=== PATIENT | female | born 1935 | race African-American/Black ===

== ENCOUNTER 2017-04-29 22:15 | Emergency (ER) | payer MEDICARE, OTHER ==
[2017-04-29] MEDS ORDERED: Ondansetron HCl/PF 4 MG/2 ML Vial ONE (22:30)
[2017-04-30 00:02] LABS: #Eosinphils 0.1 thou/uL (0.0-0.7); #Monocytes 0.3 thou/uL (0.11-0.59); #Neutrophils 4.8 thou/uL (1.40-6.50); %Basophils 0.7 % (0.0-1.0); %Eosinophils 1.7 % (0.0-10.0); %Lymphocytes 15.4 % (21.0-51.0); Hematocrit 35.1 % (36.0-47.0); Mean Platelet Volume 8.4 fL (7.4-10.4); Red Blood Cell (RBC) Count 4.27 mill/uL (4.20-5.40); White Blood Cell (WBC) Count 6.2 thou/uL (4.8-10.8)
[2017-04-30 00:32] LABS: Troponin I 0.018 ng/mL (< 0.028)
[2017-04-30 00:49] LABS: ALT (SGPT) Less than 7 U/L (8-55); AST (SGOT) 13 U/L (5-34); Alkaline Phosphatase 64 U/L (40-150); Anion Gap 14 mmol/L (10-20); BUN (Urea Nitrogen) 38 mg/dL (9.8-20.1); Bilirubin, Total 0.5 mg/dL (0.2-1.2); CK (CPK) 52 U/L (29-168); Calc. Creatinine Clearance 0 mL/min (70-130); Calcium 9.9 mg/dL (7.8-10.44); Carbon Dioxide 27 mmol/L (23-31); Chloride 101 mmol/L (98-107); Estimated GFR-MDRD 21; Globulin 2.9 g/dL (2.4-3.5); Lipase 13 U/L (8-78); Protein, Total 6.7 g/dL (6.0-8.3)
--- NOTE | 2017-04-30 08:53 | RAD ---
RADIOGRAPH CHEST 1 VIEW: HISTORY: 82-year-old female with hypertension, nausea, and emesis. FINDINGS: There is cardiomegaly. The thoracic aorta is tortuous and ectatic. There is no evidence of air spac e density, pulmonary edema, or pneumothorax. The lateral costophrenic angles are sharp. IMPRESSION: 1. No acute pulmonary findings. 2. Cardiomegaly without congestive heart failure. 3. Ectasia of thoracic aorta. tray [] POS: QUINTEN
== END 2017-04-30 02:52 | disposition home or self-care (01) ==
LOC: ERS 22:15
DX: R11.2 Nausea with vomiting, unspecified (principal); E78.5 Hyperlipidemia, unspecified; I69.354 Hemiplegia and hemiparesis following cerebral infarction affecting left non-dominant side; I10 Essential (primary) hypertension; E11.9 Type 2 diabetes mellitus without complications; Z79.4 Long term (current) use of insulin; Z79.899 Other long term (current) drug therapy
CPT/HCPCS: 71010; 80053; 82550; 82553; 83690; 84484; 85025; 93005; 94760; 96374; 96375; J0360; J2405

== ENCOUNTER 2017-05-09 13:12 | Outpatient (CLI) | payer MEDICARE, MEDICAID ==
--- NOTE | 2017-05-09 16:19 | CT ---
NONCONTRAST HEAD CT: Comparison: 04-02-17 History: Follow up bleed. Technique: Noncontrast head CT is performed from skull base to skull vertex. FINDINGS: Previously noted hyperdensity in the right frontal subcortical white matter has resolved. No new are as of parenchymal hemorrhage are appreciated. No extraaxial hematoma. No midline shift. Basilar cist erns are patent. Age appropriate atrophy. Cortical merrill white matter differentiation is preserved. V entricles and sulci are patent and symmetric. Confluent white matter hypodensity due to chronic small vessel ischemic change are noted. Intact calvarium. Right sphenoid sinus disease, unchanged. Adequate aeration of mastoid air cells. IMPRESSION: 1. Interval resolution of previously noted right frontal lobe subcortical hemorrhage. No new areas o f hemorrhage. 2. Age appropriate atrophy. Chronic small vessel ischemic changes are identified. POS: QUINTEN
== END 2017-05-09 13:13 | disposition home or self-care (01) ==
LOC: TBSIIMAG 13:12
PROVIDERS: ATTEND Neurological Surgery
DX: I61.0 Nontraumatic intracerebral hemorrhage in hemisphere, subcortical (principal)
CPT/HCPCS: 70450

== ENCOUNTER 2017-07-04 03:46 | Outpatient (CLI) | payer MEDICARE, MEDICAID | END 2017-07-04 03:47 | disposition home or self-care (01) | LOC: ULT 03:46 | PROVIDERS: ATTEND Internal Medicine Nephrology | DX: N18.9 Chronic kidney disease, unspecified (principal); N28.1 Cyst of kidney, acquired | CPT/HCPCS: 76770 ==

== ENCOUNTER 2018-06-29 12:37 | Emergency (ER) | payer MEDICARE, MEDICAID ==
[2018-06-29 13:14] LABS: #Lymphocytes 0.9 thou/uL (1.20-3.40); #Monocytes 0.2 thou/uL (0.11-0.59); %Basophils 0.5 % (0.0-1.0); %Eosinophils 0.5 % (0.0-10.0); %Lymphocytes 21.6 % (21.0-51.0); %Monocytes 5.8 % (0.0-10.0); %Neutrophils 71.7 % (42.0-75.0); Hemoglobin 10.5 g/dL (12.0-16.0); Mean Corpuscular HGB CONC 32.6 g/dL (32.0-36.0); Mean Corpuscular Hemoglobin 26.6 pg (27.0-31.0); Mean Corpuscular Volume 81.5 fL (78.0-98.0); Platelet Count 191 thou/uL (130-400); RBC Distribution Width 14.4 % (11.5-14.5); Red Blood Cell (RBC) Count 3.94 mill/uL (4.20-5.40); White Blood Cell (WBC) Count 4.2 thou/uL (4.8-10.8)
[2018-06-29 13:38] LABS: ALT (SGPT) Less than 7 U/L (8-55); AST (SGOT) 12 U/L (5-34); Albumin 3.8 g/dL (3.4-4.8); Alkaline Phosphatase 41 U/L (40-150); Anion Gap 12 mmol/L (10-20); BUN (Urea Nitrogen) 47 mg/dL (9.8-20.1); Bilirubin, Total 0.5 mg/dL (0.2-1.2); Calc. Creatinine Clearance 0 mL/min (70-130); Calcium 10.1 mg/dL (7.8-10.44); Carbon Dioxide 26 mmol/L (23-31); Chloride 105 mmol/L (98-107); Estimated GFR-MDRD 19; Globulin 2.7 g/dL (2.4-3.5); Glucose 283 mg/dL (83-110); Potassium 5.5 mmol/L (3.5-5.1); Protein, Total 6.5 g/dL (6.0-8.3); Sodium 137 mmol/L (136-145)
[2018-06-29] MEDS ORDERED: Furosemide 40 MG TAB ONE (15:02)
== END 2018-06-29 15:09 | disposition home or self-care (01) ==
LOC: ERS 12:37
DX: N19 Unspecified kidney failure (principal); E11.9 Type 2 diabetes mellitus without complications; E78.5 Hyperlipidemia, unspecified; I10 Essential (primary) hypertension; E78.1 Pure hyperglyceridemia; Z86.73 Personal history of transient ischemic attack (TIA), and cerebral infarction without residual deficits; Z79.4 Long term (current) use of insulin; Z79.899 Other long term (current) drug therapy
CPT/HCPCS: 36415; 80053; 85025; 99283

== ENCOUNTER 2019-02-22 18:20 | Emergency (ER) | payer MEDICARE, MEDICAID ==
[2019-02-22 18:43] LABS: #Eosinphils 0.1 thou/uL (0.0-0.7); #Lymphocytes 1.4 thou/uL (1.20-3.40); #Monocytes 0.4 thou/uL (0.11-0.59); %Basophils 0.4 % (0.0-1.0); %Eosinophils 1.8 % (0.0-10.0); %Lymphocytes 28.8 % (21.0-51.0); %Monocytes 8.9 % (0.0-10.0); %Neutrophils 60.2 % (42.0-75.0); Hemoglobin 10.3 g/dL (12.0-16.0); Mean Corpuscular HGB CONC 33.3 g/dL (32.0-36.0); Mean Corpuscular Hemoglobin 26.7 pg (27.0-31.0); Mean Corpuscular Volume 80.1 fL (78.0-98.0); Platelet Count 175 thou/uL (130-400); RBC Distribution Width 13.9 % (11.5-14.5); Red Blood Cell (RBC) Count 3.85 mill/uL (4.20-5.40); White Blood Cell (WBC) Count 4.9 thou/uL (4.8-10.8)
--- NOTE | 2019-02-22 19:05 | RAD ---
CHEST ONE VIEW: 02/22/19 INDICATION: History of altered mental status. COMPARISON: Prior exam dated 04/29/17. FINDINGS: There is persistent cardiomegaly with pulmonary vascular congestion and hazy bilateral perihilar opac ities suspicious for edema. No pleural effusion or pneumothorax is evident. IMPRESSION: Findings suspicious for mild CHF. Atypical infectious process cannot be entirely excluded. Recommend correlation with the clinical examination. POS: BLANCHE
[2019-02-22 19:06] LABS: ALT (SGPT) Less than 7 U/L (8-55); AST (SGOT) 12 U/L (5-34); Alkaline Phosphatase 46 U/L (40-150); Anion Gap 13 mmol/L (10-20); BUN (Urea Nitrogen) 60 mg/dL (9.8-20.1); Bilirubin, Total 0.5 mg/dL (0.2-1.2); CK (CPK) 57 U/L (29-168); Calc. Creatinine Clearance 0 mL/min (70-130); Calcium 10.3 mg/dL (7.8-10.44); Carbon Dioxide 29 mmol/L (23-31); Chloride 100 mmol/L (98-107); Estimated GFR-MDRD 15; Globulin 2.7 g/dL (2.4-3.5); Glucose 178 mg/dL (83-110); Lipase 33 U/L (8-78); Potassium 4.2 mmol/L (3.5-5.1); Protein, Total 6.7 g/dL (6.0-8.3); Sodium 138 mmol/L (136-145)
== END 2019-02-22 19:53 | disposition home or self-care (01) ==
LOC: ERS 18:20
DX: E86.0 Dehydration (principal); I12.9 Hypertensive chronic kidney disease with stage 1 through stage 4 chronic kidney disease, or unspecified chronic kidney disease; N18.9 Chronic kidney disease, unspecified; E11.22 Type 2 diabetes mellitus with diabetic chronic kidney disease; Z79.4 Long term (current) use of insulin; E78.2 Mixed hyperlipidemia; Z86.73 Personal history of transient ischemic attack (TIA), and cerebral infarction without residual deficits; Z79.899 Other long term (current) drug therapy
CPT/HCPCS: 71045; 80053; 82550; 83690; 83880; 84484; 85025; 93005; 96360

== ENCOUNTER 2022-03-05 09:48 | Emergency (ER) | payer OTHER | END 2022-03-05 11:02 | disposition home or self-care (01) | LOC: ERS 09:48 | DX: S92.351A Displaced fracture of fifth metatarsal bone, right foot, initial encounter for closed fracture (principal); E11.9 Type 2 diabetes mellitus without complications; E78.5 Hyperlipidemia, unspecified; E78.00 Pure hypercholesterolemia, unspecified; I10 Essential (primary) hypertension; Z86.73 Personal history of transient ischemic attack (TIA), and cerebral infarction without residual deficits; Z79.899 Other long term (current) drug therapy; W18.30XA Fall on same level, unspecified, initial encounter; Z79.4 Long term (current) use of insulin ==

== ENCOUNTER 2023-02-06 21:44 | Emergency (ER) | payer OTHER, MEDICAID ==
[2023-02-07] MEDS ORDERED: Acetaminophen 500 MG TAB ONE (00:06)
[2023-02-07] MEDS ORDERED: Bupivacaine 0.25% 10 ML VIAL ONE (00:11)
[2023-02-07 00:55] LABS: #Monocytes 0.4 thou/uL (0.11-0.59); #Neutrophils 4.2 thou/uL (1.40-6.50); %Basophils 0.3 % (0.0-1.0); %Eosinophils 0.7 % (0.0-10.0); %Lymphocytes 19.4 % (21.0-51.0); %Monocytes 6.1 % (0.0-10.0); %Neutrophils 73.3 % (42.0-75.0); Hemoglobin 9.3 g/dL (12.0-16.0); Mean Corpuscular HGB CONC 32.3 g/dL (32.0-36.0); Mean Corpuscular Hemoglobin 26.3 pg (27.0-31.0); Mean Corpuscular Volume 81.6 fl (78.0-98.0); Mean Platelet Volume 9.4 fL (7.4-10.4); Platelet Count 162 10x3/uL (130-400); RBC Distribution Width 14.5 % (11.5-14.5); Red Blood Cell (RBC) Count 3.53 mill/uL (4.20-5.40); White Blood Cell (WBC) Count 5.8 10x3/uL (4.8-10.8)
[2023-02-07 01:16] LABS: ALT (SGPT) 7 U/L (8-55); AST (SGOT) 13 U/L (5-34); Alkaline Phosphatase 35 U/L (40-110); Anion Gap 18 mmol/L (10-20); BUN (Urea Nitrogen) 62 mg/dL (9.8-20.1); Bilirubin, Total 0.4 mg/dL (0.2-1.2); Calc. Creatinine Clearance 0 mL/min (70-130); Carbon Dioxide 19 mmol/L (23-31); Chloride 104 mmol/L (98-107); Estimated GFR 11; Globulin 2.4 g/dL (2.4-3.5); Glucose 156 mg/dL (83-110); Potassium 4.5 mmol/L (3.5-5.1); Protein, Total 6.4 g/dL (5.8-8.1); Sodium 136 mmol/L (136-145)
[2023-02-07] MEDS ORDERED: Amlodipine 5 MG TAB ONE (05:36)
[2023-02-07] MEDS ORDERED: hydrALAZINE 25 MG TAB ONE (05:38)
== END 2023-02-07 10:12 | disposition home or self-care (01) ==
LOC: ERS 21:44
DX: S82.002A Unspecified fracture of left patella, initial encounter for closed fracture (principal); S01.511A Laceration without foreign body of lip, initial encounter; E11.9 Type 2 diabetes mellitus without complications; E78.2 Mixed hyperlipidemia; I10 Essential (primary) hypertension; W01.198A Fall on same level from slipping, tripping and stumbling with subsequent striking against other object, initial encounter; Z79.4 Long term (current) use of insulin
CPT/HCPCS: 12011; 36415; 70450; 71045; 80053; 85025; 93005; S0020

== ENCOUNTER 2023-05-12 14:34 | Inpatient (IN) | payer OTHER, MEDICAID ==
[2023-05-12 15:12] LABS: #Monocytes 0.3 thou/uL (0.11-0.59); #Neutrophils 4.7 thou/uL (1.40-6.50); %Basophils 0.5 % (0.0-1.0); %Lymphocytes 14.7 % (21.0-51.0); %Monocytes 5.6 % (0.0-10.0); %Neutrophils 78.9 % (42.0-75.0); Hematocrit 32.5 % (36.0-47.0); Hemoglobin 10.4 g/dL (12.0-16.0); Mean Corpuscular Hemoglobin 25.7 pg (27.0-31.0); Mean Corpuscular Volume 80.4 fl (78.0-98.0); Mean Platelet Volume 9.7 fL (7.4-10.4); Platelet Count 208 10x3/uL (130-400); RBC Distribution Width 15.4 % (11.5-14.5); Red Blood Cell (RBC) Count 4.04 mill/uL (4.20-5.40); White Blood Cell (WBC) Count 5.9 10x3/uL (4.8-10.8)
[2023-05-12] MEDS ORDERED: Ondansetron PF 4 MG/2 ML Vial ONE ×2 (15:16→18:06)
[2023-05-12 15:39] LABS: Troponin I 0.083 ng/mL (< 0.028)
[2023-05-12 15:56] LABS: ALT (SGPT) Less than 7 U/L (8-55); AST (SGOT) 17 U/L (5-34); Albumin 4.8 g/dL (3.4-4.8); Alkaline Phosphatase 42 U/L (40-110); Anion Gap 22 mmol/L (10-20); BUN (Urea Nitrogen) 52 mg/dL (9.8-20.1); Bilirubin, Total 0.5 mg/dL (0.2-1.2); Calc. Creatinine Clearance 0 mL/min (70-130); Calcium 11.4 mg/dL (7.8-10.44); Carbon Dioxide 21 mmol/L (23-31); Chloride 103 mmol/L (98-107); Estimated GFR 10; Globulin 2.5 g/dL (2.4-3.5); Glucose 217 mg/dL (83-110); Lipase 18 U/L (8-78); Potassium 5.2 mmol/L (3.5-5.1); Protein, Total 7.3 g/dL (5.8-8.1); Sodium 141 mmol/L (136-145)
[2023-05-12] MEDS ORDERED: Promethazine HCl 25 MG SUPP ONE ×2 (16:36→16:39)
[2023-05-12 18:41] LABS: Troponin I 0.071 ng/mL (< 0.028)
[2023-05-12] MEDS ORDERED: Dextrose 5% in Water 1,000 ML IV PRN ×2 (19:44→20:24)
[2023-05-12] MEDS ORDERED: Dextrose 50% Abboject 50 ML SYRINGE SLOW IVP PRN ×2 (19:44→20:24)
[2023-05-12] MEDS ORDERED: Ondansetron PF 4 MG/2 ML Vial IVP PRN (19:44)
[2023-05-12] MEDS ORDERED: HumaLOG 300 UNITS/3 ML VIAL SC PRN ×2 (19:44)
[2023-05-12] MEDS ORDERED: Acetaminophen 325 MG TAB PO PRN ×2 (19:44→20:20)
[2023-05-12] MEDS ORDERED: Acetaminophen 650 MG Suppository PR PRN (19:44)
[2023-05-12] MEDS ORDERED: Glucagon 1 MG/ML KIT IM PRN ×2 (19:44→20:24)
[2023-05-12] MEDS ORDERED: Ondansetron ODT 4 MG TAB PO PRN (19:44)
[2023-05-12] MEDS ORDERED: Electrolyte Replacement Protocol 1 EACH FS SCH (20:00)
[2023-05-12] MEDS ORDERED: Morphine 4 MG/ML VIAL ONE (20:13)
[2023-05-12] MEDS ORDERED: Labetalol HCl 100 MG/20 ML VIAL ONE (20:24)
[2023-05-12] MEDS ORDERED: cloNIDine 0.1 MG TAB PO SCH (21:00)
[2023-05-12] MEDS ORDERED: hydrALAZINE 25 MG TAB PO SCH (21:00)
[2023-05-12 21:38] LABS: Hemoglobin A1c 7.2 % (4.0-6.0)
[2023-05-12 22:16] VITALS: BMI 21.8
[2023-05-12] MEDS: Heparin 5,000 UNITS/ML VIAL SC SCH (22:18)
[2023-05-12] MEDS: hydrALAZINE 25 MG TAB PO SCH (22:18)
[2023-05-12] MEDS: cloNIDine 0.1 MG TAB PO SCH (22:18)
[2023-05-12] MEDS: HumaLOG 300 UNITS/3 ML VIAL SC PRN (22:19)
[2023-05-12 23:01] LABS: Troponin I 0.088 ng/mL (< 0.028)
[2023-05-13 04:14] LABS: #Monocytes 0.3 thou/uL (0.11-0.59); #Neutrophils 6.1 thou/uL (1.40-6.50); %Basophils 0.3 % (0.0-1.0); %Lymphocytes 5.4 % (21.0-51.0); %Monocytes 3.7 % (0.0-10.0); %Neutrophils 90.5 % (42.0-75.0); Hematocrit 33.3 % (36.0-47.0); Hemoglobin 10.4 g/dL (12.0-16.0); Mean Corpuscular HGB CONC 31.2 g/dL (32.0-36.0); Mean Corpuscular Hemoglobin 25.4 pg (27.0-31.0); Mean Corpuscular Volume 81.4 fl (78.0-98.0); Mean Platelet Volume 10.1 fL (7.4-10.4); Platelet Count 200 10x3/uL (130-400); RBC Distribution Width 15.5 % (11.5-14.5); Red Blood Cell (RBC) Count 4.09 mill/uL (4.20-5.40); White Blood Cell (WBC) Count 6.7 10x3/uL (4.8-10.8)
[2023-05-13 04:42] LABS: ALT (SGPT) Less than 7 U/L (8-55); AST (SGOT) 14 U/L (5-34); Albumin 4.8 g/dL (3.4-4.8); Alkaline Phosphatase 42 U/L (40-110); Anion Gap 20 mmol/L (10-20); BUN (Urea Nitrogen) 50 mg/dL (9.8-20.1); Bilirubin, Total 0.5 mg/dL (0.2-1.2); Calc. Creatinine Clearance 8 mL/min (70-130); Calcium 11.5 mg/dL (7.8-10.44); Carbon Dioxide 26 mmol/L (23-31); Chloride 103 mmol/L (98-107); Estimated GFR 10; Globulin 2.5 g/dL (2.4-3.5); Glucose 257 mg/dL (83-110); Potassium 4.6 mmol/L (3.5-5.1); Protein, Total 7.3 g/dL (5.8-8.1); Sodium 144 mmol/L (136-145)
[2023-05-13 05:42] LABS: Bacteria/HPF 3+ HPF (None Seen); Bilirubin Negative (Negative); Blood, Urine Negative (Negative); Clarity Clear (Clear); Glucose, Urine (Dipstick) 500 mg/dL (Negative); Ketone, Urine 10 mg/dL (Negative); Leukocyte Negative Leu/uL (Negative); Nitrite Negative (Negative); Protein, Urine (Dipstick) 200 mg/dL (Neg-Trace); RBC/HPF 0-3 HPF (0-3); Squamous Epithelial None Seen HPF (0-3); Urobilinogen Normal mg/dL (Less than 2); WBC/HPF 0-3 HPF (0-3)
[2023-05-13] MEDS ORDERED: Furosemide 40 MG/4 ML VIAL SLOW IVP SCH (06:00)
[2023-05-13] MEDS: HumaLOG 300 UNITS/3 ML VIAL SC PRN (06:11)
[2023-05-13] MEDS ORDERED: Famotidine 20 MG TAB PO SCH (09:00)
[2023-05-13] MEDS ORDERED: Insulin Glargine 30 UNITS/0.3 ML VIAL SC SCH (09:15)
[2023-05-13] MEDS ORDERED: Amlodipine 10 MG TAB PO SCH (09:15)
[2023-05-13] MEDS ORDERED: Lactated Ringer's 1,000 ML IV SCH (09:15)
[2023-05-13] MEDS: Heparin 5,000 UNITS/ML VIAL SC SCH ×2 (09:45→21:12)
[2023-05-13] MEDS: hydrALAZINE 25 MG TAB PO SCH ×4 (09:46→21:09)
[2023-05-13] MEDS: cloNIDine 0.1 MG TAB PO SCH ×2 (09:47→21:08)
[2023-05-13] MEDS ORDERED: Sodium Chloride 0.9% 1,000 ML IV SCH ×2 (12:45→13:26)
[2023-05-13] MEDS ORDERED: EPOETIN ALFA-EPBX (ESRD) 10,000 UNITS/ML VIAL SC SCH (13:00)
[2023-05-13] MEDS: Sodium Chloride 0.45% 1,000 ML IV SCH (14:50)
[2023-05-13 16:55] LABS: Anion Gap 13 mmol/L (10-20); BUN (Urea Nitrogen) 53 mg/dL (9.8-20.1); Calc. Creatinine Clearance 9 mL/min (70-130); Calcium 10.6 mg/dL (7.8-10.44); Carbon Dioxide 29 mmol/L (23-31); Chloride 106 mmol/L (98-107); Estimated GFR 11; Glucose 102 mg/dL (83-110); Magnesium 2.1 mg/dL (1.6-2.6); Potassium 4.8 mmol/L (3.5-5.1); Sodium 143 mmol/L (136-145)
[2023-05-13] MEDS: HumaLOG 300 UNITS/3 ML VIAL SC SCH (19:01)
[2023-05-13] MEDS: PARoxetine 20 MG TAB PO SCH (21:12)
[2023-05-14] MEDS: Sodium Chloride 0.45% 1,000 ML IV SCH ×2 (00:23→09:03)
[2023-05-14 04:11] LABS: #Monocytes 0.5 thou/uL (0.11-0.59); #Neutrophils 4.7 thou/uL (1.40-6.50); %Basophils 0.3 % (0.0-1.0); %Lymphocytes 17.4 % (21.0-51.0); %Monocytes 8.4 % (0.0-10.0); %Neutrophils 73.4 % (42.0-75.0); Hematocrit 28.8 % (36.0-47.0); Hemoglobin 8.7 g/dL (12.0-16.0); Mean Corpuscular HGB CONC 30.2 g/dL (32.0-36.0); Mean Corpuscular Hemoglobin 25.4 pg (27.0-31.0); Mean Corpuscular Volume 84.2 fl (78.0-98.0); Mean Platelet Volume 9.9 fL (7.4-10.4); Platelet Count 164 10x3/uL (130-400); RBC Distribution Width 15.5 % (11.5-14.5); Red Blood Cell (RBC) Count 3.42 mill/uL (4.20-5.40); White Blood Cell (WBC) Count 6.3 10x3/uL (4.8-10.8)
[2023-05-14 04:39] LABS: Albumin 3.9 g/dL (3.4-4.8); Anion Gap 14 mmol/L (10-20); BUN (Urea Nitrogen) 59 mg/dL (9.8-20.1); BUN/Creatinine Ratio 15.05; Calc. Creatinine Clearance 8 mL/min (70-130); Calcium 9.9 mg/dL (7.8-10.44); Carbon Dioxide 26 mmol/L (23-31); Chloride 105 mmol/L (98-107); Estimated GFR 11; Glucose 87 mg/dL (83-110); Phosphorus 3.7 mg/dL (2.3-4.7); Potassium 4.7 mmol/L (3.5-5.1); Sodium 140 mmol/L (136-145)
[2023-05-14] MEDS ORDERED: Calcitriol 0.25 MCG CAP PO SCH (09:00)
[2023-05-14] MEDS: Amlodipine 10 MG TAB PO SCH (09:01)
[2023-05-14] MEDS: cloNIDine 0.1 MG TAB PO SCH ×2 (09:01→19:52)
[2023-05-14] MEDS: hydrALAZINE 25 MG TAB PO SCH ×3 (09:02→19:51)
[2023-05-14] MEDS: Heparin 5,000 UNITS/ML VIAL SC SCH ×2 (09:02→21:06)
[2023-05-14] MEDS: HumaLOG 300 UNITS/3 ML VIAL SC SCH ×3 (09:04→16:52)
[2023-05-14] MEDS: Insulin Glargine 30 UNITS/0.3 ML VIAL SC SCH (09:08)
[2023-05-14] MEDS ORDERED: Sodium Chloride 0.45% 1,000 ML IV SCH (09:16)
[2023-05-14] MEDS ORDERED: Prochlorperazine Maleate 5 MG TAB PO PRN (09:18)
[2023-05-14] MEDS ORDERED: Dextrose 50% Abboject 50 ML SYRINGE ONE (12:49)
[2023-05-14] MEDS ORDERED: Polyethylene Glycol 3350 17 GM Packet PO SCH (13:00)
[2023-05-14] MEDS ORDERED: Glucagon 1 MG/ML KIT ONE (15:59)
[2023-05-14 16:34] LABS: Glucose 277 mg/dL (83-110)
[2023-05-14] MEDS: Carvedilol 6.25 MG TAB PO SCH (16:53)
[2023-05-14 17:13] LABS: Anion Gap 14 mmol/L (10-20); BUN (Urea Nitrogen) 58 mg/dL (9.8-20.1); Calc. Creatinine Clearance 8 mL/min (70-130); Calcium 9.3 mg/dL (7.8-10.44); Carbon Dioxide 23 mmol/L (23-31); Chloride 104 mmol/L (98-107); Estimated GFR 10; Potassium 3.7 mmol/L (3.5-5.1); Sodium 137 mmol/L (136-145)
[2023-05-14] MEDS ORDERED: Dextrose 5% in Water 1,000 ML IV SCH (17:45)
[2023-05-14] MEDS: PARoxetine 20 MG TAB PO SCH (21:07)
[2023-05-14] MEDS: HumaLOG 300 UNITS/3 ML VIAL SC PRN (21:27)
[2023-05-15 04:32] LABS: #Monocytes 0.6 thou/uL (0.11-0.59); #Neutrophils 5.3 thou/uL (1.40-6.50); %Basophils 0.3 % (0.0-1.0); %Eosinophils 0.4 % (0.0-10.0); %Lymphocytes 16.9 % (21.0-51.0); %Monocytes 8.9 % (0.0-10.0); %Neutrophils 73.1 % (42.0-75.0); Hematocrit 28.1 % (36.0-47.0); Hemoglobin 8.7 g/dL (12.0-16.0); Mean Corpuscular Hemoglobin 25.7 pg (27.0-31.0); Mean Corpuscular Volume 82.9 fl (78.0-98.0); Mean Platelet Volume 9.9 fL (7.4-10.4); Platelet Count 154 10x3/uL (130-400); RBC Distribution Width 15.4 % (11.5-14.5); Red Blood Cell (RBC) Count 3.39 mill/uL (4.20-5.40); White Blood Cell (WBC) Count 7.2 10x3/uL (4.8-10.8)
[2023-05-15 04:58] LABS: Albumin 3.7 g/dL (3.4-4.8); Anion Gap 15 mmol/L (10-20); BUN (Urea Nitrogen) 62 mg/dL (9.8-20.1); Calc. Creatinine Clearance 8 mL/min (70-130); Calcium 9.1 mg/dL (7.8-10.44); Carbon Dioxide 22 mmol/L (23-31); Chloride 105 mmol/L (98-107); Estimated GFR 10; Glucose 64 mg/dL (83-110); Phosphorus 3.4 mg/dL (2.3-4.7); Potassium 4.5 mmol/L (3.5-5.1); Sodium 137 mmol/L (136-145)
[2023-05-15] MEDS ORDERED: Carvedilol 25 MG TAB PO SCH (08:57)
[2023-05-15] MEDS ORDERED: Ergocalciferol 1.25 MG(50,000 UNITS) CAP PO SCH (09:00)
[2023-05-15] MEDS ORDERED: FLU VACC QS2023(65UP)/MF59C/PF 60 MCG/0.5 ML SYRINGE IM ONE (09:00)
[2023-05-15] MEDS: Amlodipine 10 MG TAB PO SCH (09:53)
[2023-05-15] MEDS: cloNIDine 0.1 MG TAB PO SCH ×2 (09:53→21:49)
[2023-05-15] MEDS: hydrALAZINE 25 MG TAB PO SCH ×3 (09:54→21:50)
[2023-05-15] MEDS: Polyethylene Glycol 3350 17 GM Packet PO SCH (09:54)
[2023-05-15] MEDS: Heparin 5,000 UNITS/ML VIAL SC SCH ×2 (09:54→21:50)
[2023-05-15] MEDS: Insulin Glargine 30 UNITS/0.3 ML VIAL SC SCH (09:55)
[2023-05-15] MEDS: Carvedilol 6.25 MG TAB PO SCH (10:03)
[2023-05-15] MEDS: Carvedilol 25 MG TAB PO SCH (16:14)
[2023-05-15] MEDS: HumaLOG 300 UNITS/3 ML VIAL SC PRN (18:57)
[2023-05-15] MEDS: PARoxetine 20 MG TAB PO SCH (21:50)
[2023-05-16 04:33] LABS: #Monocytes 0.5 thou/uL (0.11-0.59); #Neutrophils 4.6 thou/uL (1.40-6.50); %Basophils 0.3 % (0.0-1.0); %Eosinophils 0.5 % (0.0-10.0); %Lymphocytes 19.2 % (21.0-51.0); %Monocytes 7.2 % (0.0-10.0); Hematocrit 24.2 % (36.0-47.0); Hemoglobin 7.7 g/dL (12.0-16.0); Mean Corpuscular HGB CONC 31.8 g/dL (32.0-36.0); Mean Corpuscular Volume 81.8 fl (78.0-98.0); Mean Platelet Volume 10.6 fL (7.4-10.4); Platelet Count 150 10x3/uL (130-400); RBC Distribution Width 15.4 % (11.5-14.5); Red Blood Cell (RBC) Count 2.96 mill/uL (4.20-5.40); White Blood Cell (WBC) Count 6.4 10x3/uL (4.8-10.8)
[2023-05-16 05:08] LABS: Albumin 3.5 g/dL (3.4-4.8); Anion Gap 14 mmol/L (10-20); BUN (Urea Nitrogen) 65 mg/dL (9.8-20.1); BUN/Creatinine Ratio 14.54; Calc. Creatinine Clearance 7 mL/min (70-130); Calcium 9.2 mg/dL (7.8-10.44); Carbon Dioxide 25 mmol/L (23-31); Chloride 104 mmol/L (98-107); Estimated GFR 9; Glucose 162 mg/dL (83-110); Phosphorus 2.5 mg/dL (2.3-4.7); Potassium 5.2 mmol/L (3.5-5.1); Sodium 138 mmol/L (136-145)
[2023-05-16 06:44] LABS: Troponin I 0.044 ng/mL (< 0.028)
[2023-05-16] MEDS ORDERED: LOKELMA 10 GM PACKET PO SCH (08:45)
[2023-05-16] MEDS: cloNIDine 0.1 MG TAB PO SCH ×2 (08:59→21:06)
[2023-05-16] MEDS: Amlodipine 10 MG TAB PO SCH ×2 (08:59→09:03)
[2023-05-16] MEDS: Heparin 5,000 UNITS/ML VIAL SC SCH ×2 (09:02→21:05)
[2023-05-16] MEDS ORDERED: Dextrose 50% Abboject 50 ML SYRINGE SLOW IVP SCH (09:08)
[2023-05-16] MEDS ORDERED: Insulin Regular 300 UNITS/3 ML VIAL IVP SCH ×2 (09:15→10:15)
[2023-05-16 09:36] LABS: Iron 29 ug/dL (50-170); Iron Binding Capacity, Total 168 mcg/dL (265-497)
[2023-05-16] MEDS ORDERED: Carvedilol 25 MG TAB PO SCH ×2 (10:00→17:00)
[2023-05-16] MEDS ORDERED: hydrALAZINE 25 MG TAB PO SCH (10:00)
[2023-05-16] MEDS ORDERED: VANCOMYCIN (BATCH) 1.25 GM 1.25 GM in Premix Bag 1 BAG IVPB SCH (10:00)
[2023-05-16] MEDS ORDERED: Vancomycin Dose by Levels Sliding Scale (Wt <71) FS SCH (10:00)
[2023-05-16] MEDS: Polyethylene Glycol 3350 17 GM Packet PO SCH (10:36)
[2023-05-16] MEDS: Insulin Glargine 30 UNITS/0.3 ML VIAL SC SCH (10:44)
[2023-05-16] MEDS: Carvedilol 25 MG TAB PO SCH (10:45)
[2023-05-16 15:02] LABS: Magnesium 1.9 mg/dL (1.6-2.6)
[2023-05-16] MEDS: hydrALAZINE 25 MG TAB PO SCH ×2 (15:49→21:06)
[2023-05-16] MEDS: Atorvastatin Calcium 20 MG TAB PO SCH (21:06)
[2023-05-16] MEDS: PARoxetine 20 MG TAB PO SCH (21:07)
[2023-05-17 03:57] LABS: #Eosinphils 0.1 thou/uL (0.0-0.7); #Monocytes 0.5 thou/uL (0.11-0.59); %Basophils 0.4 % (0.0-1.0); %Eosinophils 1.4 % (0.0-10.0); %Lymphocytes 18.6 % (21.0-51.0); %Monocytes 8.2 % (0.0-10.0); %Neutrophils 70.5 % (42.0-75.0); Hemoglobin 7.5 g/dL (12.0-16.0); Mean Corpuscular HGB CONC 31.3 g/dL (32.0-36.0); Mean Corpuscular Hemoglobin 25.4 pg (27.0-31.0); Mean Corpuscular Volume 81.4 fl (78.0-98.0); Mean Platelet Volume 10.5 fL (7.4-10.4); Platelet Count 160 10x3/uL (130-400); RBC Distribution Width 15.5 % (11.5-14.5); Red Blood Cell (RBC) Count 2.95 mill/uL (4.20-5.40); White Blood Cell (WBC) Count 5.7 10x3/uL (4.8-10.8)
[2023-05-17 07:14] LABS: Anion Gap 11 mmol/L (10-20); BUN (Urea Nitrogen) 65 mg/dL (9.8-20.1); Calc. Creatinine Clearance 8 mL/min (70-130); Calcium 9.1 mg/dL (7.8-10.44); Carbon Dioxide 26 mmol/L (23-31); Chloride 103 mmol/L (98-107); Estimated GFR 9; Glucose 140 mg/dL (83-110); Potassium 4.7 mmol/L (3.5-5.1); Sodium 135 mmol/L (136-145)
[2023-05-17 07:25] LABS: HBSAB Concentration Less than 8.00 mIU/mL; HBSAg Index 0.16 S/CO (0-0.99); Hep B Core Total Ab Non-Reactive (NonReactive); Hep B Core Total Index 0.06 S/CO (0-0.79); Hep B Surf AB Non-Reactive (NonReactive); Hep B Surf Ag Non-Reactive S/CO (NonReactive); Hep C IgG Ab Non-Reactive S/CO (NonReactive); Hep C Index 0.06 S/CO (0-0.79)
[2023-05-17 11:27] LABS: Vancomycin, Random 12.1 ug/mL (See Comment)
[2023-05-17] MEDS: hydrALAZINE 25 MG TAB PO SCH ×3 (12:03→21:16)
[2023-05-17] MEDS: cloNIDine 0.1 MG TAB PO SCH ×2 (12:03→21:15)
[2023-05-17] MEDS: Heparin 5,000 UNITS/ML VIAL SC SCH ×2 (12:10→21:15)
[2023-05-17] MEDS: Polyethylene Glycol 3350 17 GM Packet PO SCH (12:12)
[2023-05-17] MEDS ORDERED: Amlodipine 10 MG TAB PO SCH (12:15)
[2023-05-17] MEDS ORDERED: Vancomycin HCl 750 MG in Sodium Chloride 0.9% 250 ML 250 ML IVPB SCH (12:45)
[2023-05-17] MEDS ORDERED: Sodium Chloride 0.9% 0 ML ONE (13:36)
[2023-05-17] MEDS: HumaLOG 300 UNITS/3 ML VIAL SC PRN (17:16)
[2023-05-17] MEDS: Atorvastatin Calcium 20 MG TAB PO SCH (21:14)
[2023-05-17] MEDS: PARoxetine 20 MG TAB PO SCH (21:16)
[2023-05-18 04:04] LABS: #Eosinphils 0.1 thou/uL (0.0-0.7); #Monocytes 0.6 thou/uL (0.11-0.59); #Neutrophils 3.6 thou/uL (1.40-6.50); %Basophils 0.2 % (0.0-1.0); %Lymphocytes 19.7 % (21.0-51.0); %Monocytes 10.1 % (0.0-10.0); %Neutrophils 66.9 % (42.0-75.0); Hematocrit 24.1 % (36.0-47.0); Hemoglobin 7.6 g/dL (12.0-16.0); Mean Corpuscular HGB CONC 31.5 g/dL (32.0-36.0); Mean Corpuscular Hemoglobin 25.9 pg (27.0-31.0); Mean Corpuscular Volume 82.3 fl (78.0-98.0); Mean Platelet Volume 10.7 fL (7.4-10.4); Platelet Count 188 10x3/uL (130-400); RBC Distribution Width 15.6 % (11.5-14.5); Red Blood Cell (RBC) Count 2.93 mill/uL (4.20-5.40); White Blood Cell (WBC) Count 5.4 10x3/uL (4.8-10.8)
[2023-05-18 05:11] LABS: Calcium 9.4 mg/dL (7.8-10.44); Chloride 104 mmol/L (98-107); Glucose 150 mg/dL (83-110); Potassium 4.8 mmol/L (3.5-5.1); Sodium 137 mmol/L (136-145)
[2023-05-18 05:12] LABS: Anion Gap 14 mmol/L (10-20); BUN (Urea Nitrogen) 65 mg/dL (9.8-20.1); Calc. Creatinine Clearance 8 mL/min (70-130); Carbon Dioxide 24 mmol/L (23-31); Estimated GFR 10
[2023-05-18] MEDS ORDERED: Amlodipine 10 MG TAB PO SCH (09:00)
[2023-05-18] MEDS: Polyethylene Glycol 3350 17 GM Packet PO SCH (09:36)
[2023-05-18] MEDS: cloNIDine 0.1 MG TAB PO SCH ×2 (09:36→21:26)
[2023-05-18] MEDS: Heparin 5,000 UNITS/ML VIAL SC SCH ×2 (09:36→21:28)
[2023-05-18] MEDS: hydrALAZINE 25 MG TAB PO SCH ×3 (09:37→21:27)
[2023-05-18] MEDS: HumaLOG 300 UNITS/3 ML VIAL SC PRN (11:29)
[2023-05-18] MEDS: PARoxetine 20 MG TAB PO SCH (21:27)
[2023-05-18] MEDS: Atorvastatin Calcium 20 MG TAB PO SCH (21:27)
[2023-05-19 04:30] LABS: #Eosinphils 0.2 thou/uL (0.0-0.7); #Monocytes 0.5 thou/uL (0.11-0.59); #Neutrophils 2.8 thou/uL (1.40-6.50); %Basophils 0.6 % (0.0-1.0); %Eosinophils 3.2 % (0.0-10.0); %Lymphocytes 26.3 % (21.0-51.0); %Monocytes 10.3 % (0.0-10.0); %Neutrophils 57.7 % (42.0-75.0); Hematocrit 26.3 % (36.0-47.0); Hemoglobin 8.2 g/dL (12.0-16.0); Mean Corpuscular HGB CONC 31.2 g/dL (32.0-36.0); Mean Corpuscular Hemoglobin 25.7 pg (27.0-31.0); Mean Corpuscular Volume 82.4 fl (78.0-98.0); Mean Platelet Volume 10.2 fL (7.4-10.4); Platelet Count 211 10x3/uL (130-400); RBC Distribution Width 15.6 % (11.5-14.5); Red Blood Cell (RBC) Count 3.19 mill/uL (4.20-5.40); White Blood Cell (WBC) Count 4.8 10x3/uL (4.8-10.8)
[2023-05-19 05:06] LABS: Anion Gap 12 mmol/L (10-20); BUN (Urea Nitrogen) 62 mg/dL (9.8-20.1); Calc. Creatinine Clearance 8 mL/min (70-130); Calcium 9.5 mg/dL (7.8-10.44); Carbon Dioxide 25 mmol/L (23-31); Chloride 105 mmol/L (98-107); Estimated GFR 9; Glucose 165 mg/dL (83-110); Magnesium 2.3 mg/dL (1.6-2.6); Potassium 4.7 mmol/L (3.5-5.1); Sodium 137 mmol/L (136-145)
[2023-05-19] MEDS: hydrALAZINE 25 MG TAB PO SCH ×2 (09:31→16:13)
[2023-05-19] MEDS: cloNIDine 0.1 MG TAB PO SCH (09:31)
[2023-05-19] MEDS: Polyethylene Glycol 3350 17 GM Packet PO SCH (09:32)
[2023-05-19] MEDS: Heparin 5,000 UNITS/ML VIAL SC SCH (09:36)
[2023-05-19] MEDS: HumaLOG 300 UNITS/3 ML VIAL SC PRN (11:05)
[2023-05-19 16:46] VITALS: BP 172/74; TEMP 99.3
== END 2023-05-19 19:55 | disposition home or self-care (01) | DRG 682 ==
LOC: ERS 14:34 → 2NO 19:50 → OBSVTOIN 05-14 12:49
PROVIDERS: ADMIT Internal Medicine; ATTEND Internal Medicine
DX: N17.9 Acute kidney failure, unspecified (principal); I21.A1 Myocardial infarction type 2; I16.1 Hypertensive emergency; E87.20 Acidosis, unspecified; I69.354 Hemiplegia and hemiparesis following cerebral infarction affecting left non-dominant side; I47.20 Ventricular tachycardia, unspecified; A08.4 Viral intestinal infection, unspecified; N18.5 Chronic kidney disease, stage 5; E78.5 Hyperlipidemia, unspecified; R33.9 Retention of urine, unspecified; D63.1 Anemia in chronic kidney disease; E83.52 Hypercalcemia; E11.65 Type 2 diabetes mellitus with hyperglycemia; E83.39 Other disorders of phosphorus metabolism; I25.10 Atherosclerotic heart disease of native coronary artery without angina pectoris; E11.649 Type 2 diabetes mellitus with hypoglycemia without coma; S82.002D Unspecified fracture of left patella, subsequent encounter for closed fracture with routine healing; Z79.899 Other long term (current) drug therapy; Z79.4 Long term (current) use of insulin
CPT/HCPCS: 36415; 36416; 71045; 74176; 80048; 80053; 80069; 80202; 81001; 82010; 82306; 82728; 83036; 83540; 83550; 83605; 83690; 83735; 83970; 84443; 84484; 85025; 86704; 87040; 87077; 87149; 93005; 93010; 93306; 96372; 96374; 96375; 96376; G0378; J1644; J1815; J2270; J2405; J3370; J7050; J7070; J7120; J7999; Q5105

== ENCOUNTER 2023-06-07 12:27 | Inpatient (IN) | payer OTHER ==
[2023-06-07 13:10] LABS: #Monocytes 0.3 thou/uL (0.11-0.59); #Neutrophils 1.5 thou/uL (1.40-6.50); %Basophils 1.2 % (0.0-1.0); %Eosinophils 1.5 % (0.0-10.0); %Lymphocytes 29.2 % (21.0-51.0); %Monocytes 10.8 % (0.0-10.0); %Neutrophils 56.9 % (42.0-75.0); Hematocrit 29.1 % (36.0-47.0); Hemoglobin 9.2 g/dL (12.0-16.0); Mean Corpuscular HGB CONC 31.6 g/dL (32.0-36.0); Mean Corpuscular Hemoglobin 26.7 pg (27.0-31.0); Mean Corpuscular Volume 84.3 fl (78.0-98.0); Mean Platelet Volume 9.8 fL (7.4-10.4); Platelet Count 185 10x3/uL (130-400); RBC Distribution Width 16.3 % (11.5-14.5); Red Blood Cell (RBC) Count 3.45 mill/uL (4.20-5.40); White Blood Cell (WBC) Count 2.6 10x3/uL (4.8-10.8)
[2023-06-07 13:41] LABS: ALT (SGPT) Less than 7 U/L (8-55); AST (SGOT) 12 U/L (5-34); Albumin 3.9 g/dL (3.4-4.8); Alkaline Phosphatase 47 U/L (40-110); Anion Gap 15 mmol/L (10-20); BUN (Urea Nitrogen) 60 mg/dL (9.8-20.1); Bilirubin, Total 0.5 mg/dL (0.2-1.2); Calc. Creatinine Clearance 0 mL/min (70-130); Calcium 9.8 mg/dL (7.8-10.44); Carbon Dioxide 25 mmol/L (23-31); Chloride 104 mmol/L (98-107); Estimated GFR 10; Globulin 2.2 g/dL (2.4-3.5); Glucose 209 mg/dL (83-110); Protein, Total 6.1 g/dL (5.8-8.1); Sodium 138 mmol/L (136-145)
[2023-06-07 13:50] LABS: Potassium 6.3 mmol/L (3.5-5.1)
[2023-06-07 15:40] LABS: Actual Bicarbonate (HCO3a) 25.6 mEq/L (22-28); Analyzer IN Cardio ER; Base Excess (BEa) -0.1 mEq/L (-2.0 to +3.0); CO2 Tension 46.1 mmHg (35.0-45.0); Calcium, Ionized (arterial) 1.25 mmol/L (1.12-1.30); Carboxyhemoglobin (COHb) 0.4 gm% (0.0-3.0); Hematocrit-ABG 29 % (36.0-47.0); Potassium - ABG Lab 5.49 mmol/L (3.70-5.30); pH, Arterial 7.362 (7.35-7.45)
[2023-06-07 15:50] LABS: O2 Tension (PaO2), arterial 31.4 mmHg (> 60.0)
[2023-06-07 15:51] LABS: ALV-art Gradient 60.705 mmHg (0-20); Puncture Site RRA
[2023-06-07] MEDS ORDERED: Calcium Chloride 1 GM/10 ML Abboject SYRINGE ONE ×2 (16:01)
[2023-06-07] MEDS ORDERED: Insulin Regular 300 UNITS/3 ML VIAL ONE (16:01)
[2023-06-07] MEDS ORDERED: Dextrose 10% in Water 250 ML ONE (16:01)
[2023-06-07] MEDS ORDERED: Albuterol 2.5 MG/0.5 ML NEB ONE (16:59)
[2023-06-07 17:22] LABS: Troponin I 0.028 ng/mL (< 0.028)
[2023-06-07] MEDS ORDERED: Furosemide 40 MG/4 ML VIAL ONE (17:22)
[2023-06-07] MEDS ORDERED: LOKELMA 10 GM PACKET PO SCH (17:30)
[2023-06-07 17:38] LABS: Magnesium 1.9 mg/dL (1.6-2.6)
[2023-06-07 19:18] LABS: ALT (SGPT) Less than 7 U/L (8-55); AST (SGOT) 13 U/L (5-34); Alkaline Phosphatase 46 U/L (40-110); Anion Gap 15 mmol/L (10-20); BUN (Urea Nitrogen) 59 mg/dL (9.8-20.1); Calc. Creatinine Clearance 0 mL/min (70-130); Carbon Dioxide 22 mmol/L (23-31); Chloride 105 mmol/L (98-107); Estimated GFR 10; Globulin 2.1 g/dL (2.4-3.5); Glucose 115 mg/dL (83-110); Protein, Total 6.1 g/dL (5.8-8.1); Sodium 137 mmol/L (136-145)
[2023-06-07 19:26] LABS: Bilirubin, Total 0.4 mg/dL (0.2-1.2)
[2023-06-07 20:58] LABS: Troponin I 0.034 ng/mL (< 0.028)
[2023-06-07 22:24] VITALS: BMI 19.8
[2023-06-07] MEDS: Heparin 5,000 UNITS/ML VIAL SC SCH (22:26)
[2023-06-07] MEDS ORDERED: cloNIDine 0.1 MG TAB PO SCH (23:30)
[2023-06-07] MEDS ORDERED: hydrALAZINE 25 MG TAB PO SCH (23:30)
[2023-06-07] MEDS ORDERED: Dextrose 5% in Water 1,000 ML IV PRN (23:42)
[2023-06-07] MEDS ORDERED: Dextrose 50% Abboject 50 ML SYRINGE SLOW IVP PRN (23:42)
[2023-06-07] MEDS ORDERED: Glucagon 1 MG/ML KIT IM PRN (23:42)
[2023-06-08 00:04] LABS: Troponin I 0.034 ng/mL (< 0.028)
[2023-06-08 06:25] LABS: #Eosinphils 0.1 thou/uL (0.0-0.7); #Monocytes 0.4 thou/uL (0.11-0.59); #Neutrophils 2.3 thou/uL (1.40-6.50); %Basophils 0.9 % (0.0-1.0); %Eosinophils 3.1 % (0.0-10.0); %Lymphocytes 20.2 % (21.0-51.0); %Monocytes 11.4 % (0.0-10.0); %Neutrophils 64.1 % (42.0-75.0); Hemoglobin 9.3 g/dL (12.0-16.0); Mean Corpuscular Hemoglobin 25.5 pg (27.0-31.0); Mean Corpuscular Volume 82.2 fl (78.0-98.0); Mean Platelet Volume 9.9 fL (7.4-10.4); Platelet Count 186 10x3/uL (130-400); Red Blood Cell (RBC) Count 3.65 mill/uL (4.20-5.40); White Blood Cell (WBC) Count 3.5 10x3/uL (4.8-10.8)
[2023-06-08 06:48] LABS: ALT (SGPT) Less than 7 U/L (8-55); AST (SGOT) 13 U/L (5-34); Alkaline Phosphatase 47 U/L (40-110); Anion Gap 13 mmol/L (10-20); BUN (Urea Nitrogen) 60 mg/dL (9.8-20.1); Bilirubin, Total 0.6 mg/dL (0.2-1.2); Calc. Creatinine Clearance 9 mL/min (70-130); Calcium 10.7 mg/dL (7.8-10.44); Carbon Dioxide 27 mmol/L (23-31); Chloride 102 mmol/L (98-107); Estimated GFR 10; Globulin 2.1 g/dL (2.4-3.5); Glucose 119 mg/dL (83-110); Potassium 5.2 mmol/L (3.5-5.1); Protein, Total 6.1 g/dL (5.8-8.1); Sodium 137 mmol/L (136-145)
[2023-06-08] MEDS: Heparin 5,000 UNITS/ML VIAL SC SCH ×3 (07:24→20:21)
[2023-06-08 07:29] LABS: HBSAB Concentration Less than 8.00 mIU/mL; HBSAg Index 0.17 S/CO (0-0.99); Hep B Core Total Ab Non-Reactive (NonReactive); Hep B Core Total Index 0.08 S/CO (0-0.79); Hep B Surf AB Non-Reactive (NonReactive); Hep B Surf Ag Non-Reactive S/CO (NonReactive); Hep C IgG Ab Non-Reactive S/CO (NonReactive); Hep C Index 0.06 S/CO (0-0.79)
[2023-06-08] MEDS: hydrALAZINE 25 MG TAB PO SCH ×3 (08:29→20:20)
[2023-06-08] MEDS: cloNIDine 0.1 MG TAB PO SCH ×3 (08:29→20:21)
[2023-06-08] MEDS ORDERED: Epoetin (ESRD) 10,000 UNITS/ML VIAL IVP SCH (12:00)
[2023-06-08] MEDS: Tuberculin PPD 0.1 ML VIAL I-DERMAL SCH (12:27)
[2023-06-08] MEDS: HumaLOG 300 UNITS/3 ML VIAL SC PRN (17:32)
[2023-06-08] MEDS: Acetaminophen 325 MG TAB PO PRN (20:23)
[2023-06-09] MEDS ORDERED: Sevoflurane 250 ML INH ANEST BOTTLE ONE (03:33)
[2023-06-09 06:15] LABS: #Eosinphils 0.1 thou/uL (0.0-0.7); #Monocytes 0.6 thou/uL (0.11-0.59); #Neutrophils 2.3 thou/uL (1.40-6.50); %Basophils 0.5 % (0.0-1.0); %Eosinophils 1.5 % (0.0-10.0); %Lymphocytes 23.7 % (21.0-51.0); %Monocytes 15.5 % (0.0-10.0); %Neutrophils 58.5 % (42.0-75.0); Hematocrit 27.2 % (36.0-47.0); Hemoglobin 8.7 g/dL (12.0-16.0); Mean Corpuscular Hemoglobin 26.4 pg (27.0-31.0); Mean Corpuscular Volume 82.4 fl (78.0-98.0); Platelet Count 178 10x3/uL (130-400); RBC Distribution Width 15.9 % (11.5-14.5); White Blood Cell (WBC) Count 3.9 10x3/uL (4.8-10.8)
[2023-06-09] MEDS ORDERED: fentaNYL PF 100 MCG/2 ML SYRINGE ONE (06:32)
[2023-06-09 06:55] LABS: ALT (SGPT) Less than 7 U/L (8-55); AST (SGOT) 11 U/L (5-34); Albumin 3.6 g/dL (3.4-4.8); Alkaline Phosphatase 43 U/L (40-110); Anion Gap 16 mmol/L (10-20); BUN (Urea Nitrogen) 66 mg/dL (9.8-20.1); Bilirubin, Total 0.3 mg/dL (0.2-1.2); Calc. Creatinine Clearance 8 mL/min (70-130); Calcium 9.2 mg/dL (7.8-10.44); Carbon Dioxide 25 mmol/L (23-31); Chloride 100 mmol/L (98-107); Estimated GFR 9; Glucose 155 mg/dL (83-110); Potassium 5.4 mmol/L (3.5-5.1); Protein, Total 5.6 g/dL (5.8-8.1); Sodium 136 mmol/L (136-145)
[2023-06-09] MEDS ORDERED: Bupivacaine PF 0.5% 30 ML VIAL ONE (07:16)
[2023-06-09] MEDS ORDERED: Heparin 10,000 UNITS/ 10 ML VIAL ONE (07:16)
[2023-06-09] MEDS ORDERED: Lidocaine 2% PF 5 ML VIAL ONE (07:16)
[2023-06-09] MEDS ORDERED: EPINEPHrine 1 MG/ML VIAL ONE (07:17)
[2023-06-09] MEDS ORDERED: Lidocaine 1% PF 5 ML VIAL ONE (07:58)
[2023-06-09] MEDS ORDERED: Ondansetron PF 4 MG/2 ML Vial ONE (07:58)
[2023-06-09] MEDS ORDERED: PROPOFOL 200 MG/20 ML VIAL ONE (07:58)
[2023-06-09] MEDS: hydrALAZINE 25 MG TAB PO SCH ×3 (09:07→20:25)
[2023-06-09] MEDS: cloNIDine 0.1 MG TAB PO SCH ×3 (09:07→20:25)
[2023-06-09] MEDS: Tuberculin PPD 0.1 ML VIAL I-DERMAL SCH (09:07)
[2023-06-09] MEDS: Heparin 5,000 UNITS/ML VIAL SC SCH ×3 (09:13→20:25)
[2023-06-09] MEDS: Epoetin (ESRD) 10,000 UNITS/ML VIAL IVP SCH (17:03)
[2023-06-09] MEDS: Acetaminophen 325 MG TAB PO PRN (23:35)
[2023-06-10 06:45] LABS: #Eosinphils 0.1 thou/uL (0.0-0.7); #Monocytes 0.7 thou/uL (0.11-0.59); #Neutrophils 3.1 thou/uL (1.40-6.50); %Basophils 0.4 % (0.0-1.0); %Lymphocytes 21.6 % (21.0-51.0); %Monocytes 14.3 % (0.0-10.0); %Neutrophils 62.3 % (42.0-75.0); Hematocrit 28.7 % (36.0-47.0); Hemoglobin 9.1 g/dL (12.0-16.0); Mean Corpuscular HGB CONC 31.7 g/dL (32.0-36.0); Mean Corpuscular Hemoglobin 26.1 pg (27.0-31.0); Mean Corpuscular Volume 82.5 fl (78.0-98.0); Mean Platelet Volume 10.5 fL (7.4-10.4); Platelet Count 187 10x3/uL (130-400); RBC Distribution Width 15.9 % (11.5-14.5); Red Blood Cell (RBC) Count 3.48 mill/uL (4.20-5.40)
[2023-06-10 07:30] LABS: ALT (SGPT) Less than 7 U/L (8-55); AST (SGOT) 10 U/L (5-34); Albumin 3.8 g/dL (3.4-4.8); Alkaline Phosphatase 51 U/L (40-110); Anion Gap 16 mmol/L (10-20); BUN (Urea Nitrogen) 41 mg/dL (9.8-20.1); Bilirubin, Total 0.3 mg/dL (0.2-1.2); Calc. Creatinine Clearance 9 mL/min (70-130); Calcium 9.1 mg/dL (7.8-10.44); Carbon Dioxide 25 mmol/L (23-31); Chloride 101 mmol/L (98-107); Estimated GFR 10; Globulin 2.1 g/dL (2.4-3.5); Glucose 162 mg/dL (83-110); Potassium 4.7 mmol/L (3.5-5.1); Protein, Total 5.9 g/dL (5.8-8.1); Sodium 137 mmol/L (136-145)
[2023-06-10] MEDS ORDERED: Heparin 10,000 UNITS/ 10 ML VIAL ONE (08:07)
[2023-06-10] MEDS ORDERED: Polyethylene Glycol 3350 17 GM Packet PO SCH (09:00)
[2023-06-10] MEDS: Tuberculin PPD 0.1 ML VIAL I-DERMAL SCH (10:39)
[2023-06-10] MEDS: cloNIDine 0.1 MG TAB PO SCH ×4 (10:41→22:05)
[2023-06-10] MEDS: hydrALAZINE 25 MG TAB PO SCH ×3 (10:42→22:05)
[2023-06-10] MEDS: Heparin 5,000 UNITS/ML VIAL SC SCH ×3 (10:42→22:05)
[2023-06-11] MEDS: HumaLOG 300 UNITS/3 ML VIAL SC PRN ×2 (05:31→12:14)
[2023-06-11 06:57] LABS: #Eosinphils 0.1 thou/uL (0.0-0.7); #Monocytes 0.6 thou/uL (0.11-0.59); #Neutrophils 2.7 thou/uL (1.40-6.50); %Basophils 0.7 % (0.0-1.0); %Lymphocytes 22.1 % (21.0-51.0); %Monocytes 13.7 % (0.0-10.0); Hematocrit 27.9 % (36.0-47.0); Hemoglobin 8.9 g/dL (12.0-16.0); Mean Corpuscular HGB CONC 31.9 g/dL (32.0-36.0); Mean Corpuscular Hemoglobin 26.2 pg (27.0-31.0); Mean Corpuscular Volume 82.1 fl (78.0-98.0); Mean Platelet Volume 10.1 fL (7.4-10.4); Platelet Count 169 10x3/uL (130-400); RBC Distribution Width 15.4 % (11.5-14.5); White Blood Cell (WBC) Count 4.4 10x3/uL (4.8-10.8)
[2023-06-11 07:18] LABS: ALT (SGPT) Less than 7 U/L (8-55); AST (SGOT) 9 U/L (5-34); Albumin 3.8 g/dL (3.4-4.8); Alkaline Phosphatase 48 U/L (40-110); Anion Gap 11 mmol/L (10-20); BUN (Urea Nitrogen) 26 mg/dL (9.8-20.1); Bilirubin, Total 0.5 mg/dL (0.2-1.2); Calc. Creatinine Clearance 11 mL/min (70-130); Carbon Dioxide 28 mmol/L (23-31); Chloride 94 mmol/L (98-107); Estimated GFR 13; Globulin 2.1 g/dL (2.4-3.5); Glucose 177 mg/dL (83-110); Potassium 4.4 mmol/L (3.5-5.1); Protein, Total 5.9 g/dL (5.8-8.1); Sodium 129 mmol/L (136-145)
[2023-06-11] MEDS ORDERED: READ PPD TEST SITE PO SCH (09:00)
[2023-06-11] MEDS: cloNIDine 0.1 MG TAB PO SCH ×3 (09:16→20:58)
[2023-06-11] MEDS: Heparin 5,000 UNITS/ML VIAL SC SCH ×3 (09:16→20:58)
[2023-06-11] MEDS: hydrALAZINE 25 MG TAB PO SCH ×3 (09:16→20:58)
[2023-06-11] MEDS: Polyethylene Glycol 3350 17 GM Packet PO SCH ×2 (09:17→20:58)
[2023-06-11] MEDS: Tuberculin PPD 0.1 ML VIAL I-DERMAL SCH (11:59)
[2023-06-11 18:39] LABS: Anion Gap 14 mmol/L (10-20); BUN (Urea Nitrogen) 31 mg/dL (9.8-20.1); Calc. Creatinine Clearance 10 mL/min (70-130); Calcium 8.8 mg/dL (7.8-10.44); Carbon Dioxide 27 mmol/L (23-31); Chloride 92 mmol/L (98-107); Estimated GFR 12; Glucose 183 mg/dL (83-110); Potassium 4.8 mmol/L (3.5-5.1); Sodium 128 mmol/L (136-145)
[2023-06-12] MEDS: HumaLOG 300 UNITS/3 ML VIAL SC PRN (06:47)
[2023-06-12] MEDS: Heparin 5,000 UNITS/ML VIAL SC SCH ×3 (09:01→20:28)
[2023-06-12] MEDS: hydrALAZINE 25 MG TAB PO SCH ×3 (09:03→20:29)
[2023-06-12] MEDS: cloNIDine 0.1 MG TAB PO SCH ×3 (09:03→20:29)
[2023-06-12] MEDS: Polyethylene Glycol 3350 17 GM Packet PO SCH ×2 (09:04→20:29)
[2023-06-12 09:15] LABS: #Eosinphils 0.1 thou/uL (0.0-0.7); #Monocytes 0.4 thou/uL (0.11-0.59); #Neutrophils 1.9 thou/uL (1.40-6.50); %Basophils 0.6 % (0.0-1.0); %Eosinophils 2.7 % (0.0-10.0); %Lymphocytes 25.8 % (21.0-51.0); %Neutrophils 56.1 % (42.0-75.0); Hematocrit 28.2 % (36.0-47.0); Hemoglobin 8.9 g/dL (12.0-16.0); Mean Corpuscular HGB CONC 31.6 g/dL (32.0-36.0); Mean Corpuscular Hemoglobin 25.5 pg (27.0-31.0); Mean Corpuscular Volume 80.8 fl (78.0-98.0); Mean Platelet Volume 10.4 fL (7.4-10.4); Platelet Count 190 10x3/uL (130-400); RBC Distribution Width 15.2 % (11.5-14.5); Red Blood Cell (RBC) Count 3.49 mill/uL (4.20-5.40); White Blood Cell (WBC) Count 3.3 10x3/uL (4.8-10.8)
[2023-06-12 09:50] LABS: ALT (SGPT) Less than 7 U/L (8-55); AST (SGOT) 10 U/L (5-34); Albumin 3.6 g/dL (3.4-4.8); Alkaline Phosphatase 46 U/L (40-110); Anion Gap 15 mmol/L (10-20); BUN (Urea Nitrogen) 38 mg/dL (9.8-20.1); Bilirubin, Total 0.3 mg/dL (0.2-1.2); Calc. Creatinine Clearance 9 mL/min (70-130); Calcium 9.6 mg/dL (7.8-10.44); Carbon Dioxide 25 mmol/L (23-31); Chloride 92 mmol/L (98-107); Estimated GFR 10; Globulin 2.1 g/dL (2.4-3.5); Glucose 145 mg/dL (83-110); Potassium 4.4 mmol/L (3.5-5.1); Protein, Total 5.7 g/dL (5.8-8.1); Sodium 128 mmol/L (136-145)
[2023-06-12] MEDS: Epoetin (ESRD) 10,000 UNITS/ML VIAL IVP SCH (15:07)
[2023-06-13 04:57] LABS: #Eosinphils 0.1 thou/uL (0.0-0.7); #Monocytes 0.6 thou/uL (0.11-0.59); #Neutrophils 3.2 thou/uL (1.40-6.50); %Basophils 0.6 % (0.0-1.0); %Eosinophils 1.4 % (0.0-10.0); %Lymphocytes 19.1 % (21.0-51.0); %Monocytes 12.8 % (0.0-10.0); %Neutrophils 64.3 % (42.0-75.0); Hematocrit 30.7 % (36.0-47.0); Hemoglobin 9.7 g/dL (12.0-16.0); Mean Corpuscular HGB CONC 31.6 g/dL (32.0-36.0); Mean Corpuscular Hemoglobin 25.8 pg (27.0-31.0); Mean Corpuscular Volume 81.6 fl (78.0-98.0); Mean Platelet Volume 9.9 fL (7.4-10.4); Platelet Count 215 10x3/uL (130-400); RBC Distribution Width 15.2 % (11.5-14.5); Red Blood Cell (RBC) Count 3.76 mill/uL (4.20-5.40); White Blood Cell (WBC) Count 4.9 10x3/uL (4.8-10.8)
[2023-06-13 05:32] LABS: ALT (SGPT) Less than 7 U/L (8-55); AST (SGOT) 8 U/L (5-34); Albumin 3.7 g/dL (3.4-4.8); Alkaline Phosphatase 51 U/L (40-110); Anion Gap 15 mmol/L (10-20); BUN (Urea Nitrogen) 15 mg/dL (9.8-20.1); Bilirubin, Total 0.3 mg/dL (0.2-1.2); Calc. Creatinine Clearance 13 mL/min (70-130); Calcium 9.2 mg/dL (7.8-10.44); Carbon Dioxide 26 mmol/L (23-31); Chloride 95 mmol/L (98-107); Estimated GFR 16; Globulin 2.4 g/dL (2.4-3.5); Glucose 220 mg/dL (83-110); Potassium 4.1 mmol/L (3.5-5.1); Protein, Total 6.1 g/dL (5.8-8.1); Sodium 132 mmol/L (136-145)
[2023-06-13] MEDS: HumaLOG 300 UNITS/3 ML VIAL SC PRN (05:40)
[2023-06-13] MEDS: Polyethylene Glycol 3350 17 GM Packet PO SCH (09:09)
[2023-06-13] MEDS: Heparin 5,000 UNITS/ML VIAL SC SCH (09:09)
[2023-06-13] MEDS: hydrALAZINE 25 MG TAB PO SCH (09:09)
[2023-06-13] MEDS: cloNIDine 0.1 MG TAB PO SCH (09:09)
[2023-06-13 10:03] VITALS: BP 133/66; TEMP 97.8
== END 2023-06-13 13:55 | disposition home or self-care (01) | DRG 640 ==
LOC: ERS 12:27 → T4-A 20:09
PROVIDERS: ADMIT Family Medicine; ATTEND Family Medicine
PROC: 0JH63XZ Insertion of Tunneled Vascular Access Device into Chest Subcutaneous Tissue and Fascia, Percutaneous Approach (ICD-10-PCS; principal; 2023-06-09)
PROC: 02HV33Z Insertion of Infusion Device into Superior Vena Cava, Percutaneous Approach (ICD-10-PCS; 2023-06-09)
PROC: 5A1D70Z Performance of Urinary Filtration, Intermittent, Less than 6 Hours Per Day (ICD-10-PCS; 2023-06-09)
PROC: 5A1D70Z Performance of Urinary Filtration, Intermittent, Less than 6 Hours Per Day (ICD-10-PCS; 2023-06-10)
PROC: 5A1D70Z Performance of Urinary Filtration, Intermittent, Less than 6 Hours Per Day (ICD-10-PCS; 2023-06-12)
DX: E87.5 Hyperkalemia (principal); N18.6 End stage renal disease; I12.0 Hypertensive chronic kidney disease with stage 5 chronic kidney disease or end stage renal disease; I69.352 Hemiplegia and hemiparesis following cerebral infarction affecting left dominant side; E87.1 Hypo-osmolality and hyponatremia; E11.22 Type 2 diabetes mellitus with diabetic chronic kidney disease; F32.A Depression, unspecified; D63.1 Anemia in chronic kidney disease; D50.9 Iron deficiency anemia, unspecified; F41.1 Generalized anxiety disorder; Z79.4 Long term (current) use of insulin; Z79.899 Other long term (current) drug therapy; Z98.890 Other specified postprocedural states
CPT/HCPCS: 36415; 36416; 36600; 71045; 80053; 82805; 83605; 83735; 83880; 84484; 85025; 86580; 86704; 90935; 93005; 96365; 96375; C1752; G0257; J0171; J1644; J1815; J1940; J2001; J2405; J2704; J7611; Q4081; S0020

== ENCOUNTER 2023-07-14 16:19 | Outpatient (CLI) | payer OTHER | END 2023-07-14 16:20 | disposition home or self-care (01) | LOC: BICRAD 16:19 | PROVIDERS: ATTEND Student in an Organized Health Care Education/Training Program | DX: S22.32XA Fracture of one rib, left side, initial encounter for closed fracture (principal); W01.198A Fall on same level from slipping, tripping and stumbling with subsequent striking against other object, initial encounter; J90 Pleural effusion, not elsewhere classified | CPT/HCPCS: 71046 ==

== ENCOUNTER 2023-07-30 07:51 | Emergency (ER) | payer OTHER ==
[2023-07-30 08:56] LABS: #Monocytes 0.2 thou/uL (0.11-0.59); %Basophils 0.6 % (0.0-1.0); %Eosinophils 1.3 % (0.0-10.0); %Lymphocytes 27.8 % (21.0-51.0); %Neutrophils 63.7 % (42.0-75.0); Hematocrit 39.7 % (36.0-47.0); Hemoglobin 12.2 g/dL (12.0-16.0); Mean Corpuscular HGB CONC 30.7 g/dL (32.0-36.0); Mean Corpuscular Hemoglobin 26.9 pg (27.0-31.0); Mean Corpuscular Volume 87.4 fl (78.0-98.0); Mean Platelet Volume 9.2 fL (7.4-10.4); Platelet Count 195 10x3/uL (130-400); RBC Distribution Width 15.6 % (11.5-14.5); Red Blood Cell (RBC) Count 4.54 mill/uL (4.20-5.40); White Blood Cell (WBC) Count 3.2 10x3/uL (4.8-10.8)
[2023-07-30 09:52] LABS: ALT (SGPT) 7 U/L (8-55); AST (SGOT) 16 U/L (5-34); Albumin 3.8 g/dL (3.4-4.8); Alkaline Phosphatase 70 U/L (40-110); Anion Gap 13 mmol/L (10-20); BUN (Urea Nitrogen) 18 mg/dL (9.8-20.1); Bilirubin, Total 0.6 mg/dL (0.2-1.2); Calc. Creatinine Clearance 0 mL/min (70-130); Calcium 10.1 mg/dL (7.8-10.44); Carbon Dioxide 33 mmol/L (23-31); Chloride 98 mmol/L (98-107); Estimated GFR 18; Globulin 2.8 g/dL (2.4-3.5); Glucose 75 mg/dL (83-110); Potassium 3.7 mmol/L (3.5-5.1); Protein, Total 6.6 g/dL (5.8-8.1); Sodium 140 mmol/L (136-145)
[2023-07-30 10:04] LABS: Troponin I 0.044 ng/mL (< 0.028)
[2023-07-30] MEDS ORDERED: Aspirin 325 MG TAB ONE (10:45)
[2023-07-30] MEDS ORDERED: hydrALAZINE 20 MG/ML VIAL ONE (10:45)
[2023-07-30 11:05] LABS: Acetaminophen Less than 10 mcg/mL (10.0-30.0); Alcohol Less than 10.0 mg/dL (Less than 10); Salicylate Less than 8.0 mg/dL (15.0-30.0)
[2023-07-30 12:21] LABS: Bacteria/HPF 4+ HPF (None Seen); Bilirubin Negative (Negative); Blood, Urine Negative (Negative); CAUTI Indications for Culture Alt mental st,lethar; Clarity Turbid (Clear); Glucose, Urine (Dipstick) Normal (Negative); Ketone, Urine Negative (Negative); Leukocyte 500 Leu/uL (Negative); Nitrite Negative (Negative); Protein, Urine (Dipstick) 70 mg/dL (Neg-Trace); RBC/HPF 0-3 HPF (0-3); Specific Gravity, Urine 1.006 (1.002-1.036); Squamous Epithelial 0-3 HPF (0-3); Urobilinogen Normal mg/dL (Less than 2); WBC/HPF Greater than 50 HPF (0-3); pH, Urine 6.5 (5.0-9.0)
[2023-07-30 12:22] LABS: Urine Culture Reflex Yes Yes
[2023-07-30 12:24] LABS: Amphetamine Not Detected (NotDetected); Barbiturates Screen Not Detected (NotDetected); Benzodiazepine Screen Not Detected (NotDetected); Cocaine Metabolite Screen Not Detected (NotDetected); Methadone Not Detected (NotDetected); Methamphetamine Not Detected (NotDetected); Opiate Screen Not Detected (NotDetected); Oxycodone Screen Not Detected (NotDetected); Phencyclidine (PCP) Not Detected (NotDetected); THC/Cannabinoid Screen Not Detected (NotDetected); Tricyclic Screen Not Detected (NotDetected)
== END 2023-07-30 13:00 | disposition home or self-care (01) ==
LOC: ERS 07:51
DX: I95.9 Hypotension, unspecified (principal); N39.0 Urinary tract infection, site not specified; E11.649 Type 2 diabetes mellitus with hypoglycemia without coma; R41.82 Altered mental status, unspecified; R79.89 Other specified abnormal findings of blood chemistry; I12.9 Hypertensive chronic kidney disease with stage 1 through stage 4 chronic kidney disease, or unspecified chronic kidney disease; E11.22 Type 2 diabetes mellitus with diabetic chronic kidney disease; N18.6 End stage renal disease; Z79.4 Long term (current) use of insulin; Z99.2 Dependence on renal dialysis; Z86.73 Personal history of transient ischemic attack (TIA), and cerebral infarction without residual deficits; Z79.899 Other long term (current) drug therapy
CPT/HCPCS: 70450; 71045; 80306; 80307; 81001; 82962; 83880; 84484; 87077; 87086; 93005; J0360; 36415; 36416; 80053; 84443; 85025; 87186; 96374

== ENCOUNTER 2024-01-22 23:04 | Emergency (ER) | payer OTHER ==
[2024-01-23 00:54] LABS: #Basophils Less than 0.03 10x3/uL (0.0-0.2); %Eosinophils 1.2 % (0.0-10.0); %Lymphocytes 32.6 % (21.0-51.0); %Monocytes 9.1 % (0.0-10.0); %Neutrophils 56.8 % (42.0-75.0); Hematocrit 31.3 % (36.0-47.0); Hemoglobin 10.3 g/dL (12.0-16.0); Mean Corpuscular HGB CONC 32.9 g/dL (32.0-36.0); Mean Corpuscular Hemoglobin 27.7 pg (27.0-31.0); Mean Corpuscular Volume 84.1 fL (78.0-98.0); Platelet Count 121 10x3/uL (130-400); RBC Distribution Width 15.4 % (11.5-14.5); Red Blood Cell (RBC) Count 3.72 mill/uL (4.20-5.40)
[2024-01-23 01:04] LABS: ALT (SGPT) 19 U/L (8-55); AST (SGOT) 22 U/L (5-34); Albumin 3.5 g/dL (3.4-4.8); Alkaline Phosphatase 77 U/L (40-110); Anion Gap 16 mmol/L (10-20); BUN (Urea Nitrogen) 32 mg/dL (9.8-20.1); Bilirubin, Total 0.6 mg/dL (0.2-1.2); Calc. Creatinine Clearance 0 mL/min (70-130); Carbon Dioxide 27 mmol/L (23-31); Chloride 94 mmol/L (98-107); Estimated GFR 11; Globulin 2.4 g/dL (2.4-3.5); Glucose 116 mg/dL (83-110); Potassium 3.9 mmol/L (3.5-5.1); Protein, Total 5.9 g/dL (5.8-8.1); Sodium 133 mmol/L (136-145)
== END 2024-01-23 05:38 | disposition home or self-care (01) ==
LOC: ERS 23:04
DX: S92.412A Displaced fracture of proximal phalanx of left great toe, initial encounter for closed fracture (principal); E11.9 Type 2 diabetes mellitus without complications; Z79.4 Long term (current) use of insulin; E78.2 Mixed hyperlipidemia; I10 Essential (primary) hypertension; Z79.899 Other long term (current) drug therapy; X58.XXXA Exposure to other specified factors, initial encounter
CPT/HCPCS: 36415; 80053; 83880; 85025

== ENCOUNTER 2024-04-13 09:28 | Emergency (ER) | payer OTHER ==
[2024-04-13] MEDS ORDERED: Lidocaine 1% w/Epinephrine 1:100K 20 ML VIAL ONE (11:16)
== END 2024-04-13 12:39 | disposition home or self-care (01) ==
LOC: ERS 09:28
DX: S01.511A Laceration without foreign body of lip, initial encounter (principal); E11.9 Type 2 diabetes mellitus without complications; I10 Essential (primary) hypertension; W18.49XA Other slipping, tripping and stumbling without falling, initial encounter
CPT/HCPCS: 12011; 70450; 70486

== ENCOUNTER 2024-05-02 02:03 | Emergency (ER) | payer OTHER ==
[2024-05-02 02:51] LABS: #Basophils Less than 0.03 10x3/uL (0.0-0.2); #Eosinphils Less than 0.03 10x3/uL (0.0-0.7); %Basophils 0.5 % (0.0-1.0); %Lymphocytes 24.2 % (21.0-51.0); %Monocytes 9.7 % (0.0-10.0); %Neutrophils 65.1 % (42.0-75.0); Hematocrit 37.6 % (36.0-47.0); Hemoglobin 12.8 g/dL (12.0-16.0); Mean Corpuscular Volume 82.3 fL (78.0-98.0); Platelet Count 219 10x3/uL (130-400); RBC Distribution Width 15.4 % (11.5-14.5); Red Blood Cell (RBC) Count 4.57 mill/uL (4.20-5.40)
[2024-05-02 03:07] LABS: ALT (SGPT) 28 U/L (8-55); AST (SGOT) 37 U/L (5-34); Albumin 3.6 g/dL (3.4-4.8); Alkaline Phosphatase 139 U/L (40-110); Anion Gap 19 mmol/L (10-20); BUN (Urea Nitrogen) 26 mg/dL (9.8-20.1); Bilirubin, Total 0.9 mg/dL (0.2-1.2); Calc. Creatinine Clearance 0 mL/min (70-130); Calcium 8.1 mg/dL (7.8-10.44); Carbon Dioxide 25 mmol/L (23-31); Chloride 90 mmol/L (98-107); Estimated GFR 10; Glucose 155 mg/dL (83-110); Potassium 4.3 mmol/L (3.5-5.1); Protein, Total 5.6 g/dL (5.8-8.1); Sodium 130 mmol/L (136-145)
== END 2024-05-02 06:24 | disposition home or self-care (01) ==
LOC: ERS 02:03
DX: M53.3 Sacrococcygeal disorders, not elsewhere classified (principal); I12.9 Hypertensive chronic kidney disease with stage 1 through stage 4 chronic kidney disease, or unspecified chronic kidney disease; E11.22 Type 2 diabetes mellitus with diabetic chronic kidney disease; N18.9 Chronic kidney disease, unspecified; W13.3XXA Fall through floor, initial encounter; Z79.4 Long term (current) use of insulin
CPT/HCPCS: 36415; 74177; 80053; 85025